=== PATIENT | female | born 1985 | race Caucasian/White ===

== ENCOUNTER 2017-09-07 16:43 | Emergency (ER) | payer OTHER ==
[~2017-09-07] VITALS: Ht 162.6 cm; Wt 77.1 kg
[~2017-09-07 16:43] MED LIST: AMOXICILLIN500 M3 PO
[2017-09-07 16:45] VITALS: BP 133/80
--- NOTE | 2017-09-07 18:15 | RADIOLOGY REPORT ---
EXAMINATION: WRIST 3 VIEWS, RIGHT CLINICAL INFORMATION: Right wrist pain following injury. COMPARISON: None. TECHNIQUE: AP and lateral views of the right wrist are provided. FINDINGS: There is mild dorsal relation to a distal right radial fracture. There is associated soft tissue swelling. There is no displacement of the pronator fat pad. The proximal carpal row is intact. IMPRESSION: Distal right radial fracture.
[2017-09-07] MEDS ORDERED: NORCO 5-325 TA1 EACH PO (20:25)
[2017-09-07] MEDS ORDERED: IBUPROFEN800 M1 PO (20:25)
--- NOTE | 2017-09-07 20:25 | ED HAND/WRIST INJURY COMPLAINT ---
History of Present Illness General Chief Complaint: Hand or Wrist Injury Stated Complaint: ?BROKEN R WRIST Source: patient Exam Limitations: no limitations Vital Signs & Intake/Output Vital Signs & Intake/Output Vital Signs Date Time Temp Pulse Resp B/P B/P Pulse O2 O2 Flow FiO2 Mean Ox Delivery Rate 09/07 1645 98.6 71 18 133/80 98 Room Air Allergies Coded Allergies: No Known Allergies (01/13/16) Reconcile Medications Amoxicillin 500 MG TABLET 1 TAB PO TID PHARYNGITIS Hydrocodone/Acetaminophen ([place] 5-325 Tablet) 5 MG-325 MG TABLET 1-2 TAB PO Q4-6 PRN PRN PAIN Ibuprofen 800 MG TABLET 1 TAB PO TID PRN PAIN Triage Note: 32 YO FEMALE TO TRIAGE S/P TRIP AND FALL, C/O PAIN TO R WRIST. PT ARRIVES WITH WRIST SPLINTED WELLNESS EDUCATOR. Triage Nurses Notes Reviewed? yes Occurred: just prior to arrival Duration: hour(s): (2), constant, continues in ED, getting worse Timing: single episode today Injury Environment: home Severity: moderate, severe Severity Numbers: 10 Pain/Injury Location: Right: Wrist. Context: fall Method of Injury: fall No Modifying Factors: none Associated Symptoms: swelling LMP (ages 10-50): unknown : No Patient currently breastfeeds: No HPI: 32-year-old female past medical history of ulcerative colitis presents for evaluation of pain and swelling in her right wrist. Patient states that about one hour before presentation SHE slipped and fell and landed on her right outstretched wrist. She immediately felt pain in the radial aspect of the wrist. She denies any head strike or loss of consciousness. She rates her pain and there is a 10 out of 10. A friend applied a splint which did improve the pain and she received ibuprofen here. No numbness or tingling no elbow pain no shoulder pain no other injuries. (French Nelson) Past History Travel History Traveled to [place] past 21 day No Medical History Any Pertinent Medical History? see below for history Gastrointestinal: ulcerative colitis Musculoskeletal: rheumatoid arthritis Surgical History Surgical History: non-contributory Psychosocial History What is your primary language Malay Tobacco Use: Never used Family History Hx Contributory? No (French Nelson) Review of Systems Review of Systems Constitutional: Reports: no symptoms. EENTM: Reports: no symptoms. Respiratory: Reports: no symptoms. Cardiovascular: Reports: no symptoms. GI: Reports: no symptoms. Genitourinary: Reports: no symptoms. Musculoskeletal: Reports: joint pain, joint swelling, muscle pain. Skin: Reports: no symptoms. Neurological/Psychological: Reports: no symptoms. Hematologic/Endocrine: Reports: no symptoms. Immunologic/Allergic: Reports: no symptoms. All Other Systems: Reviewed and Negative (French Nelson) Physical Exam Physical Exam General Appearance: well developed/nourished, alert, awake, mild distress Head: atraumatic, normal appearance Eyes: Bilateral: normal appearance, PERRL, EOMI. Ears, Nose, Throat: hearing grossly normal Neck: normal inspection, supple, full range of motion, no midline tenderness Cardiovascular/Respiratory: no respiratory distress Shoulder Left: normal range of motion, normal inspection Shoulder Right: normal range of motion, normal inspection Elbow Left: normal range of motion, normal inspection Elbow Right: normal range of motion, normal inspection Forearm Left: normal range of motion, normal inspection Forearm Right: normal range of motion, normal inspection Wrist Left: normal range of motion, normal inspection Wrist Right: swelling, tenderness, bone tenderness, deformity, soft tissue tenderness, limited range of motion, THERE IS PAIN AND SWELLING OF THE RADIAL ASPECT OF THE RIGHT WRIST. rANGE OF MOTION OF THE WRIST IS REDUCED DUE TO PAIN. nO ABRASIONS OR LACERATIONS. fULL RANGE OF MOTION OF THE HAND. nEUROVASCULAR SUPPLY IS INTACT 2+ RADIAL PULSE, NO SNUFFBOX TENDERNESS Hand Left: normal inspection, normal range of motion Hand Right: normal inspection, normal range of motion Neurologic/Tendon: normal sensation, normal motor functions, normal tendon functions, responds to pain, no evidence tendon injury, no pulse deficit Skin: intact, normal color, warm/dry (French Nelson) Progress Differential Diagnosis: contusion, dislocation, fracture, sprain Plan of Care: Orders Procedure Date/time Status Durable Medical Equipment 09/07 2022 Active URINE 09/07 1649 Complete Current Medications Sig/Vielka Start time Last Medication Dose Stop Time Status Admin Hydrocodone Bitart/ 1 TAB ONCE ONE 09/07 2014 CAN Acetaminophen 09/07 2015 (Vicodin) Laboratory Tests 09/07/17 1659: Urine Test NEGATIVE Patient seen and evaluated. She has a distal right radius fracture. Neurovascular supply is intact. Patient was placed into a right-sided sugar tong splint. She was given IM Dilaudid for pain control. She is placed in a shoulder immobilizer. Advise rest ice elevation compression. Follow-up with orthopedics. Discussed return precautions and cocktail patient is nontoxic- appearing and agrees with plan. Diagnostic Imaging: Viewed by Me: Radiology Read. Discussed w/RAD: Radiology Read. Radiology Impression: PATIENT: BENJIE SUÁREZ PRESENT AGE: 32 PATIENT ACCOUNT NO: [id number] : 84 LOCATION: [facility] ORDERING PHYSICIAN: Bobo Hugo DO (TBS) SERVICE DATE: 09/07/17 EXAM TYPE: RAD - XRY-WRIST COMPLETE-RIGHT EXAMINATION: WRIST 3 VIEWS, RIGHT CLINICAL INFORMATION: Right wrist pain following injury. COMPARISON: None. TECHNIQUE: AP and lateral views of the right wrist are provided. FINDINGS: There is mild dorsal relation to a distal right radial fracture. There is associated soft tissue swelling. There is no displacement of the pronator fat pad. The proximal carpal row is intact. IMPRESSION: Distal right radial fracture. DICTATED BY: Marv Mcintosh MD DATE/TIME DICTATED:09/07/171804 ROLL WRAPPER:[place] DATE/TIME TRANSCRIBED:09/07/171804 CONFIDENTIAL, DO NOT COPY WITHOUT APPROPRIATE AUTHORIZATION. (French Nelson) Departure Departure Disposition: HOME OR SELF CARE Condition: Stable Clinical Impression Primary Impression: Radial fracture Qualifiers: Encounter type: initial encounter Radius location: distal Fracture type: closed Fracture morphology: Colles' Laterality: right Qualified Code: S52.531A - Colles' fracture of right radius, initial encounter for closed fracture Referrals: Nori FREIRE,Taz Vincent MD,Chase Loredo (PCP/Family) Additional Instructions: Rest, avoid excessive physical activity and movement. Wear sling and splint. Apply ice for 15-20 minutes every few hours. Ibuprofen 800 mg every 8 hours with food as needed for pain. [place] continues needed for severe pain only this may cause drowsiness. Follow-up with orthopedic doctor as soon as possible. Monitor symptoms return with any concerns. Departure Forms: Customer Survey General Discharge Information Prescriptions: Current Visit Scripts Ibuprofen 1 TAB PO TID PRN PAIN #30 TAB Hydrocodone/Acetaminophen ([place] 5-325 Tablet) 1-2 TAB PO Q4-6 PRN PRN PAIN #10 TAB (French Nelson) PA/PLATE DRILLER Co-Sign Statement Statement: ED Attending supervision documentation- [] I saw and evaluated the patient. I have also reviewed all the pertinent lab results and diagnostic results. I agree with the findings and the plan of care as documented in the PA's/PLATE DRILLER's documentation. [X] I have reviewed the ED Record and agree with the PA's/PLATE DRILLER's documentation. [] Additions or exceptions (if any) to the PAs/PLATE DRILLER's note and plan are summarized below: [] (Sushila FREIRE,Sandy) Procedures Splinting Location: RIGHT WRIST Manual Alignment Performed: No Hand-Made Type: orthoglass Splint: wrist, sugar-tong Splint Applied By: splint applied by me Pre-Proc Neuro Vasc Exam: normal Post-Proc Neuro Vasc Exam: normal (French Nelson)
== END 2017-09-07 20:33 ==
LOC: ERH 16:43
DX: S52.501A Unspecified fracture of the lower end of right radius, initial encounter for closed fracture (principal); W01.0XXA Fall on same level from slipping, tripping and stumbling without subsequent striking against object, initial encounter; Y92.009 Unspecified place in unspecified non-institutional (private) residence as the place of occurrence of the external cause; Y93.9 Activity, unspecified
CPT/HCPCS: 73110-RT; 81025; 96372

== ENCOUNTER → 2017-09-15 | Day surgery (SDC) | payer OTHER ==
[~2017-09-15] VITALS: Ht 162.6 cm; Wt 77.1 kg
[~2017-09-15] MED LIST changes: +IBUPROFEN800 M1 PO; +NORCO 5-325 TA1 EACH PO
--- NOTE | 2017-09-15 16:05 | Operative Report ---
Operative/Inv Procedure Report Surgery Date: 09/15/17 Name of Procedure: Right distal radius open reduction internal fixation Pre-Operative Diagnosis: Right distal radius fracture Post-Operative Diagnosis: Right distal radius fracture Estimated Blood Loss: scant Surgeon/Spray Booth Operator: Delia FREIRE,BISI Mendenhall Anesthesia: local monitored anesthesi, block Implants: Harshad intermediate right distal radius variax locking plate Complications: None Condition: Stable to PACU Operative Indication: This is a 32-year-old female who had a fall last week. She sustained a displaced intra-articular distal radius fracture. Risks and benefits of the procedure were discussed with the patient at length. Risks include but are not limited to nerve damage, muscle damage, infection, blood loss, blood clots, pulmonary embolus, and even . The patient agreed to the above risks and elected to proceed with surgery. Operative/Procedure Note Note: The patient was taken to the operating room and placed supine on the operating room table. A tourniquet was applied to the arm above the elbow. The upper extremity was prepped and draped in the normal sterile fashion. The patient received IV antibiotics prior to incision. A time out was performed and the site marking was also visualized prior to incision. An Esmarch was used to exsanguinate the extremity. The tourniquet was inflated. An incision was made from the wrist crease proximally overlying the flexor carpi radialis tendon. The FCR tendon was then isolated and the fascia deep to the tendon was incised. The flexor pollicis longus muscle belly was then swept proximally. The pronator quadratus muscle was then incised sharply and reflected. The fracture was identified and the fracture site was debrided. A [place] elevator was used to reduce the fracture and to elevate the fracture fragments dorsally. The radial styloid fragment was reduced and a K wire was inserted to hold it in place. A [place] distal radius locking plate was then applied volarly. The oblong cortical screw was then placed and the plate was positioned. The fracture was held reduced while the screws were then put in place. This served to reduce the fracture quite nicely. Several locking screws as well as smooth pegs were placed in order to hold the fracture in place. Care was taken not to violate the joint. The K wire was removed. Final x-rays were taken and excellent reduction was noted. The wound was closely irrigated. The tourniquet was let down. Any bleeding vessels were identified and cauterized. The pronator quadratus fascia was closed with 0 Vicryl suture. The skin was closed with 2-0 Vicryl suture and running 3-0 Prolene stitch. A dry sterile dressing was placed a volar splint was applied. The patient was transferred to PACU in stable condition.
--- NOTE | 2017-09-16 14:06 | RADIOLOGY REPORT ---
EXAMINATION: Intraoperative fluoroscopy CLINICAL INFORMATION: 32-year-old female undergoing ORIF of the right wrist COMPARISON: Right wrist radiographs 09/07/2017 TECHNIQUE: Intraoperative fluoroscopy was provided for use by Dr. Lin. A total of 5 images were saved to PACS. TOTAL FLUOROSCOPIC TIME: 1 minute and 13 seconds FINDINGS\E\IMPRESSION: Intraoperative fluoroscopy provided for use by Dr. Lin. Please see operative note for detailed findings.
== END ==
LOC: STS 02:21
DX: S52.531A Colles' fracture of right radius, initial encounter for closed fracture (principal); W19.XXXA Unspecified fall, initial encounter
CPT/HCPCS: 73100-RT; 81025; C1713; J0131; J0690; J2250